=== PATIENT | male | born 1995 | race Caucasian/White ===

== ENCOUNTER 2021-07-03 15:33 | Inpatient (IN) ==
[2021-07-03 17:19] LABS: Basophils % 0.2 % (0.0-0.8); Eosinophils % 0.1 % (0.00-10.9); Hematocrit 44.3 VOL% (42.0-52.0); Hemoglobin 15.7 GM/DL (14.0-18.0); Immature Granulocytes % 0.4 %; Immature Granulocytes Absolute 0.04 #; Lymphocytes # 1.1 10*3/uL (1.4-4.0); Lymphocytes % 10.3 % (21.2-54.2); Mean Corpuscular HGB Conc 35.4 GM/DL (32-36); Mean Corpuscular Volume 85.2 FL (87-102); Monocytes % 6.8 % (1.7-12.7); Neutrophils % 82.2 % (38.7-73.9); Platelet Count 267 T/CUMM (130-400); White Blood Count 10.9 T/CUMM (4-12)
[2021-07-03 17:39] LABS: Albumin 4.5 G/DL (3.4-5.0); Bilirubin,Total 1.4 MG/DL (0.20-1.00); Calcium 9.1 MG/DL (8.5-10.1); Osmolality,Calculated 268.2 MOS/KG (273-304); Potassium 3.8 MMOL/L (3.5-5.1); Total Protein 8.3 G/DL (6.4-8.2)
[2021-07-03] MEDS ORDERED: CLINDAMYCIN INJ 600 MG/50 ML PREMIX IV STA (17:55)
[2021-07-03 18:57] LABS: Sedimentation Rate-Westergren 22 MM/HR (0-15)
[2021-07-03] MEDS ORDERED: VANCOMYCIN INJ 1,250 MG in SODIUM CHLORIDE 0.9% 250 ML IV STA (19:18)
[2021-07-03] MEDS ORDERED: SODIUM CHLORIDE 0.9% 500 ML IV STA (19:19)
[2021-07-03] MEDS ORDERED: NICOTINE 21 MG/24 HR PATCH TRANSDERM PRN (19:37)
[2021-07-03] MEDS ORDERED: ACETAMINOPHEN 325 MG TABLET PO PRN (19:37)
[2021-07-03] MEDS ORDERED: GLUCAGON 1 MG VIAL IM PRN (19:37)
[2021-07-03] MEDS ORDERED: ONDANSETRON 4 MG/2 ML VIAL IV PRN (19:37)
[2021-07-03] MEDS ORDERED: DEXTROSE 10% 250 ML BAG IV PRN (19:43)
[2021-07-03] MEDS ORDERED: ENOXAPARIN 40 MG/0.4 ML SYRINGE SUBCUT SCH (20:00)
[2021-07-03] MEDS ORDERED: diphenhydrAMINE 50 MG/1 ML VIAL ONE (20:48)
[2021-07-03] MEDS ORDERED: FAMOTIDINE 20 MG/2 ML VIAL IV ONE (20:49)
[2021-07-03] MEDS ORDERED: FAMOTIDINE 20 MG/2 ML VIAL IV STA (20:56)
[2021-07-03] MEDS ORDERED: diphenhydrAMINE 50 MG/1 ML VIAL IM STA (20:56)
[2021-07-03] MEDS ORDERED: SODIUM CHLORIDE 0.9% 1,000 ML IV STA (20:56)
[2021-07-03] MEDS ORDERED: diphenhydrAMINE 50 MG/1 ML VIAL IV STA (21:44)
[2021-07-03] MEDS: PIPERACILLIN/TAZOBACTAM 3,375 MG in SODIUM CHLORIDE 0.9% 100 ML IV SCH (21:50)
[2021-07-04] MEDS ORDERED: CLINDAMYCIN INJ 600 MG/50 ML PREMIX IV SCH (02:00)
[2021-07-04] MEDS: PIPERACILLIN/TAZOBACTAM 3,375 MG in SODIUM CHLORIDE 0.9% 100 ML IV SCH (04:15)
[2021-07-04 04:45] LABS: Basophils % 0.4 % (0.0-0.8); Eosinophils # 0.1 10*3/uL (0.0-0.87); Eosinophils % 0.6 % (0.00-10.9); Hematocrit 38.1 VOL% (42.0-52.0); Hemoglobin 13.6 GM/DL (14.0-18.0); Immature Granulocytes % 0.2 %; Immature Granulocytes Absolute 0.02 #; Lymphocytes # 1.2 10*3/uL (1.4-4.0); Lymphocytes % 14.9 % (21.2-54.2); Mean Corpuscular HGB Conc 35.7 GM/DL (32-36); Mean Corpuscular Volume 85.2 FL (87-102); Monocytes % 7.6 % (1.7-12.7); Neutrophils % 76.3 % (38.7-73.9); Platelet Count 214 T/CUMM (130-400); Red Blood Count 4.47 MC/CUMM (3.8-5.5); Red Cell Distribution Width 12.1 % (9.3-17.3); White Blood Count 8.1 T/CUMM (4-12)
[2021-07-04 05:10] LABS: Calcium 8.2 MG/DL (8.5-10.1); Potassium 3.4 MMOL/L (3.5-5.1)
[2021-07-04] MEDS ORDERED: POTASSIUM CHLORIDE 20 MEQ TABLET PO ONE (08:17)
[2021-07-04] MEDS ORDERED: VANCOMYCIN INJ 1,250 MG in SODIUM CHLORIDE 0.9% 250 ML IV SCH (09:00)
[2021-07-04] MEDS ORDERED: cefTRIAXone 1,000 MG in SODIUM CHLORIDE 0.9% 100 ML IV SCH (11:00)
[2021-07-04 16:14] VITALS: BP 116/63
== END 2021-07-04 18:04 | disposition home or self-care (01) | DRG 603 ==
LOC: N.ED 15:33 → N.EDINP 19:23 → N.5E 07-04 09:59
PROVIDERS: ADMIT Internal Medicine; ATTEND Internal Medicine